=== PATIENT | male | born 1970 | race Caucasian/White ===

== ENCOUNTER 2018-06-28 16:15 | Inpatient (IN) | payer OTHER ==
[2018-06-28 17:36] VITALS: BMI 27.7
--- NOTE | 2018-06-28 19:25 | HP ---
CIWA Score - CIWA Score Nausea/Vomitin-No Nausea/No Vomiting Muscle Tremors: 4-Moderate,w/Arms Extend Anxiety: 3 Agitation: 1-Slight > Activity Paroxysmal Sweats: No Perspiration Orientation: 0-Oriented Tacttile Disturbances: 0-None Auditory Disturbances: 0-None Visual Disturbances: 0-None Headache: 0-None Present CIWA-Ar Total Score: 8 Admission ROS S - HPI Allergies/Adverse Reactions: Allergies Allergy/AdvReac Type Severity Reaction Status Date / Time No Known Allergies Allergy Verified 06/28/18 19:19 History of Present Illness: pt here requesting detox from etoh use , reports 4 tall boys / day , reports tremors if not drinking , denies seizures, + blackouts, + falls most recently years ago while living in [place] . lucian 0.328 utox neg for all. pmhx : htn , depression pshx : diverticulitis w/ partial small bowel resection 6 years ago meds : lisinopril sleep meds - has not taken in " months " tobacco : denies - Ebola screening Have you traveled outside of the country in the last 21 days: No (N) Have you had contact with anyone from an Ebola affected area: No Have you been sick,other than usual withdrawal symptoms: No Do you have a fever: No - Review of Systems Constitutional: No Symptoms Reported EENT: reports: No Symptoms Reported Respiratory: reports: No Symptoms reported Cardiac: reports: No Symptoms Reported GI: reports: No Symptoms Reported : reports: No Symptoms Reported Musculoskeletal: reports: No Symptoms Reported Integumentary: reports: No Symptoms Reported Neuro: reports: Tremors Psychiatric: reports: Judgement Intact, Orientated x3, Anxious, Depressed Patient History - Smoking Cessation Smoking history: Never smoked Family Disease History - Family Disease History Family Disease History: Other: Father (d. 36 ,lung CA ), Mother (d. 40's Alzheimer's), Brother (1 brother A & W ), Sister (2 sisters A & W ), Son (2 sons A & W ), Daughter (1 dtr A & W ) Admission Physical Exam S - Vital Signs Vital Signs: Vital Signs - 24 hr 06/28/18 17:33 Temperature 98.3 F Pulse Rate 90 Respiratory 20 Rate Blood Pressure 146/101 H - Physical General Appearance: Yes: Nourished, Disheveled, Moderate Distress, Alcohol on Breath, Intoxicated, Tremorous, Anxious HEENTM: Yes: EOMI, Hearing grossly Normal, Normal ENT Inspection, Normocephalic , Normal Voice, NAVID, Pharynx Normal, Other (injected conjunctivae bilaterally) Respiratory: Yes: Chest Non-Tender, Lungs Clear, Normal Breath Sounds, No Respiratory Distress, No Accessory Muscle Use Neck: Yes: Within Normal Limits, No masses,lesions,Nodules, Trachea in good position Cardiology: Yes: Within Normal Limits, Regular Rhythm, Regular Rate Abdominal: Yes: Normal Bowel Sounds, Non Tender, Flat, Soft Genitourinary: Yes: Within Normal Limits Back: Yes: Within Normal Limits, Normal Inspection Musculoskeletal: Yes: Within Normal Limits, full range of Motion, Gait Steady, Pelvis Stable Extremities: Yes: Normal Capillary Refill, Normal Inspection, Normal Range of Motion, Non-Tender, Tremors Neurological: Yes: Fully Oriented, Alert, Motor Strength 5/5, Normal Mood/Affect , Normal Response, Depressed Affect Integumentary: Yes: Normal Color, Dry, Warm - Diagnostic (1) Alcohol withdrawal Current Visit: Yes Status: Acute Qualifiers: Complication of substance-induced condition: uncomplicated Qualified Code(s ): F10.230 - Alcohol dependence with withdrawal, uncomplicated BHS Breath Alcohol Content Breath Alcohol Content: 0.328 Urine Drug Screen - Results Drug Screen Negative: Yes
[2018-06-28] MEDS ORDERED: guaiFENesin/D-METHORPHAN HB 10 ML UNIT-DOSE CUPS PO PRN (19:35)
[2018-06-28] MEDS ORDERED: ACETAMINOPHEN 325 MG TABLET (FP) PO PRN (19:35)
[2018-06-28] MEDS ORDERED: P-EPHED 60MG/TRIPROLIDI 2.5MG TABLET PO PRN (19:35)
[2018-06-28] MEDS ORDERED: MAGNESIUM CITRATE 300 ML BOTTLE PO PRN (19:35)
[2018-06-28] MEDS ORDERED: IBUPROFEN 400 MG TABLET (FP) PO PRN (19:35)
[2018-06-28] MEDS ORDERED: LOPERAMIDE HCL 2 MG CAPSULE PO PRN (19:35)
[2018-06-28] MEDS ORDERED: MAG HYDROX/AL HYDROX/SIMETH 30 ML UNIT-DOSE CUP PO PRN (19:35)
[2018-06-28] MEDS ORDERED: MENTHOL/PHENOL 1 EACH UD MM PRN (19:35)
[2018-06-28] MEDS ORDERED: MAGNESIUM HYDROX 2400MG/30ML ORAL SUSPENSION 30 ML CUP PO PRN (19:35)
[2018-06-28] MEDS ORDERED: METOPROLOL TARTRATE 25 MG TABLET (FP) PO ONE (19:38)
[2018-06-28] MEDS: THIAMINE HCL 100 MG TABLET (FP) PO SCH (21:39)
[2018-06-28] MEDS ORDERED: MELATONIN 5 MG TABLETS PO PRN (22:00)
[2018-06-28] MEDS: chlordiazePOXIDE HCL 25 MG CAPSULE PO SCH (22:00)
[2018-06-29 01:01] LABS: URINE APPEARANCE CLEAR; URINE BILIRUBIN NEGATIVE (<2.0 mg/dL); URINE COLOR STRAW; URINE GLUCOSE (UA) NEGATIVE (NEGATIVE); URINE KETONE NEGATIVE (NEGATIVE); URINE LEUK ESTERASE NEGATIVE (NEGATIVE); URINE NITRITE NEGATIVE (NEGATIVE); URINE PROTEIN NEGATIVE (NEGATIVE); URINE UROBILINOGEN NEGATIVE mg/dL (0.2-1.0)
[2018-06-29] MEDS: chlordiazePOXIDE HCL 25 MG CAPSULE PO SCH ×4 (05:50→22:30)
[2018-06-29] MEDS: chlordiazePOXIDE HCL 25 MG CAPSULE PO PRN ×2 (08:22→13:49)
[2018-06-29] MEDS ORDERED: amLODIPine BESYLATE 10 MG TABLET (FP) PO ONE (08:26)
[2018-06-29 10:02] LABS: HEMATOCRIT 38.8 % (35.4-49); HEMOGLOBIN 12.7 GM/dL (11.7-16.9); MCHC 32.8 g/dl (32.0-35.9); MEAN CELL VOLUME 94.7 fl (80-96); MEAN PLT VOLUME 7.4 fl (7.5-11.1); PLATELET COUNT 195 K/MM3 (134-434); RDW 16.2 % (11.9-15.9); WHITE BLOOD COUNT 3.4 K/mm3 (4.0-10.0)
--- NOTE | 2018-06-29 10:06 | CONSULT ---
[facility] Psychiatric Consult - Data Date of interview: 06/29/18 Admission source: [facility] Identifying data: Patient is a 48 year old male, father of three, unemployed, and is supported by food [employer]. This is patient's first admission to detox at [facility]. Patient admitted to for alcohol dependence. Substance Abuse History: Alcohol- drinks four 24 ounce beers daily Medical History: hypertension, diverticulitis w/ partial small bowel resection 6 years ago Psychiatric History: Patient reports multiple psychiatric hospitalization. All hospitalizations occured over 5 years ago([facility] and other [facility] Most recent Outpatient psychiatric care was 4-[address] [facility]. Patient is unable to recall the medications he was prescribed. Patient denies h /o suicide attempt. Physical/Sexual Abuse/Trauma History: denies. Mental Status Exam - Mental Status Exam Alert and Oriented to: Time, Place, Person Cognitive Function: Good Patient Appearance: Well Groomed Mood: Euthymic Affect: Appropriate Patient Behavior: Appropriate, Cooperative Speech Pattern: Appropriate Voice Loudness: Normal Thought Process: Intact, Goal Oriented Thought Disorder: Not Present Hallucinations: Denies Suicidal Ideation: Denies Homicidal Ideation: Denies Insight/Judgement: Poor Sleep: Poorly Appetite: Fair Muscle strength/Tone: Normal Gait/Station: Normal Psychiatric Findings - Problem List ([place] 1, 2,3) (1) Alcohol-induced mood disorder Current Visit: Yes Status: Acute (2) Alcohol withdrawal Current Visit: Yes Status: Acute Qualifiers: Complication of substance-induced condition: uncomplicated Qualified Code(s ): F10.230 - Alcohol dependence with withdrawal, uncomplicated (3) Insomnia Current Visit: Yes Status: Acute - Initial Treatment Plan Initial Treatment Plan: Psychoeducation provided. Detoxification in progress. Will order Vistaril 50mg q4h for anxiety. Patient informed that melatonin 5mg is ordered for insomnia.
[2018-06-29 10:17] LABS: ALBUMIN 3.8 g/dl (3.4-5.0); ALK PHOS 73 U/L (45-117); ANION GAP 7 MMOL/L (8-16); BILIRUBIN,TOTAL 0.8 mg/dL (0.2-1); BLOOD UREA NITROGEN 9 mg/dL (7-18); CALCIUM 8.9 mg/dL (8.5-10.1); CHLORIDE 106 mmol/L (98-107); CO2 27 mmol/L (21-32); CREATININE 0.5 mg/dL (0.55-1.3); GLUCOSE,RANDOM 70 mg/dL (74-106); POTASSIUM 3.7 mmol/L (3.5-5.1); SGOT/AST 103 U/L (15-37); SGPT/ALT 87 U/L (13-61); SODIUM 140 mmol/L (136-145); TOT PROT 7.7 g/dl (6.4-8.2)
[2018-06-29] MEDS: PRENATAL VITAMINS W/ FOLIC ACID TABLET (FP) PO SCH (10:19)
--- NOTE | 2018-06-29 10:48 | PN ---
[facility] CIWA - CIWA Score Nausea/Vomitin-Mild Nausea/No Vomiting Muscle Tremors: 3 Anxiety: 3 Agitation: 4-Moderately Restless Paroxysmal Sweats: No Perspiration Orientation: 0-Oriented Tacttile Disturbances: 0-None Auditory Disturbances: 0-None Visual Disturbances: 0-None Headache: 0-None Present CIWA-Ar Total Score: 11 S Progress Note (SOAP) Subjective: PATIENT C/O NAUSEA/DIARRHEA, SHAKES AND ANXIETY Objective: 06/29/18 10:47 Laboratory Tests 06/29/18 06/29/18 06/29/18 00:30 07:00 07:00 WBC 3.4 L RBC 4.10 Hgb 12.7 Hct 38.8 MCV 94.7 MCH 31.0 MCHC 32.8 RDW 16.2 H Plt Count 195 MPV 7.4 L Sodium 140 Potassium 3.7 Chloride 106 Carbon Dioxide 27 Anion Gap 7 L BUN 9 Creatinine 0.5 L Creat Clearance w eGFR > 60 Random Glucose 70 L Calcium 8.9 Total Bilirubin 0.8 AST 103 H ALT 87 H Alkaline Phosphatase 73 Total Protein 7.7 Albumin 3.8 Urine Color Straw Urine Appearance Clear Urine pH 6.0 Ur Specific [place] 1.004 L Urine Protein Negative Urine Glucose (UA) Negative Urine Ketones Negative Urine Blood Negative Urine Nitrite Negative Urine Bilirubin Negative Urine Urobilinogen Negative Ur Leukocyte Esterase Negative SKIN WARM AND DRY CAR S1S2 RESP CTA BL EXT +TREMORS, NO EDEMA +ANXIETY/RESTLESS 06/29/18 10:48 Vital Signs Temperature 97.3 F L 06/29/18 10:04 Pulse Rate 87 06/29/18 10:04 Respiratory Rate 18 06/29/18 10:04 Blood Pressure 151/104 H 06/29/18 10:04 O2 Sat by Pulse Oximetry (%) Assessment: 06/29/18 10:47 WITHDRAWAL SYNDROME HTN 06/29/18 10:48 Plan: CONTINUE DETOX ENCOURAGE ORAL FLUIDS ADD NORVASC FOR ELEVATED BP CONTINUE TO MONITOR ADD GINGERALE I CAN PO BID
[2018-06-29] MEDS: THIAMINE HCL 100 MG TABLET (FP) PO SCH (22:29)
[2018-06-30] MEDS: chlordiazePOXIDE HCL 25 MG CAPSULE PO SCH ×3 (06:42→17:56)
[2018-06-30] MEDS: PRENATAL VITAMINS W/ FOLIC ACID TABLET (FP) PO SCH (10:26)
[2018-06-30] MEDS: amLODIPine BESYLATE 10 MG TABLET (FP) PO SCH (10:26)
[2018-06-30] MEDS: chlordiazePOXIDE HCL 25 MG CAPSULE PO PRN (12:52)
--- NOTE | 2018-06-30 13:34 | PN ---
[facility] CIWA - CIWA Score Nausea/Vomitin-No Nausea/No Vomiting Muscle Tremors: 2 Anxiety: 4-Mod. Anxious/Guarded Agitation: 3 Paroxysmal Sweats: 1-Minimal Palms Moist Orientation: 0-Oriented Tacttile Disturbances: 0-None Auditory Disturbances: 0-None Visual Disturbances: 0-None Headache: 0-None Present CIWA-Ar Total Score: 10 BHS Progress Note (SOAP) Subjective: interrupted sleep, anxious, fatigue Vital Signs Temperature 98.1 F 06/30/18 10:17 Pulse Rate 85 06/30/18 10:17 Respiratory Rate 18 06/30/18 10:17 Blood Pressure 121/67 06/30/18 10:17 O2 Sat by Pulse Oximetry (%) Laboratory Last Values WBC 3.4 K/mm3 (4.0-10.0) L 06/29/18 07:00 RBC 4.10 M/mm3 (4.00-5.60) 06/29/18 07:00 Hgb 12.7 GM/dL (11.7-16.9) 06/29/18 07:00 Hct 38.8 % (35.4-49) 06/29/18 07:00 MCV 94.7 fl (80-96) 06/29/18 07:00 MCH 31.0 pg (25.7-33.7) 06/29/18 07:00 MCHC 32.8 g/dl (32.0-35.9) 06/29/18 07:00 RDW 16.2 % (11.9-15.9) H 06/29/18 07:00 Plt Count 195 K/MM3 (134-434) 06/29/18 07:00 MPV 7.4 fl (7.5-11.1) L 06/29/18 07:00 Sodium 140 mmol/L (136-145) 06/29/18 07:00 Potassium 3.7 mmol/L (3.5-5.1) 06/29/18 07:00 Chloride 106 mmol/L (98-107) 06/29/18 07:00 Carbon Dioxide 27 mmol/L (21-32) 06/29/18 07:00 Anion Gap 7 MMOL/L (8-16) L 06/29/18 07:00 BUN 9 mg/dL (7-18) 06/29/18 07:00 Creatinine 0.5 mg/dL (0.55-1.3) L 06/29/18 07:00 Creat Clearance w eGFR > 60 (>60) 06/29/18 07:00 Random Glucose 70 mg/dL (74-106) L 06/29/18 07:00 Calcium 8.9 mg/dL (8.5-10.1) 06/29/18 07:00 Total Bilirubin 0.8 mg/dL (0.2-1) 06/29/18 07:00 AST 103 U/L (15-37) H 06/29/18 07:00 ALT 87 U/L (13-61) H 06/29/18 07:00 Alkaline Phosphatase 73 U/L (45-117) 06/29/18 07:00 Total Protein 7.7 g/dl (6.4-8.2) 06/29/18 07:00 Albumin 3.8 g/dl (3.4-5.0) 06/29/18 07:00 Urine Color Straw 06/29/18 00:30 Urine Appearance Clear 06/29/18 00:30 Urine pH 6.0 (5.0-8.0) 06/29/18 00:30 Ur Specific [place] 1.004 (1.010-1.035) L 06/29/18 00:30 Urine Protein Negative (NEGATIVE) 06/29/18 00:30 Urine Glucose (UA) Negative (NEGATIVE) 06/29/18 00:30 Urine Ketones Negative (NEGATIVE) 06/29/18 00:30 Urine Blood Negative (NEGATIVE) 06/29/18 00:30 Urine Nitrite Negative (NEGATIVE) 06/29/18 00:30 Urine Bilirubin Negative (<2.0 mg/dL) 06/29/18 00:30 Urine Urobilinogen Negative mg/dL (0.2-1.0) 06/29/18 00:30 Ur Leukocyte Esterase Negative (NEGATIVE) 06/29/18 00:30 RPR Titer Nonreactive (NONREACTIVE) 06/29/18 07:00 Aox3 no distress, anxious no adventitious breath sound s ambulating in the unit withdrawal sx increase fluids continue detox continue to monitor
[2018-06-30] MEDS: chlordiazePOXIDE 5 MG CAPSULE PO SCH (22:16)
[2018-06-30] MEDS: THIAMINE HCL 100 MG TABLET (FP) PO SCH (22:16)
[2018-07-01] MEDS: chlordiazePOXIDE 5 MG CAPSULE PO SCH ×3 (06:00→17:21)
[2018-07-01] MEDS: amLODIPine BESYLATE 10 MG TABLET (FP) PO SCH (10:45)
[2018-07-01] MEDS: PRENATAL VITAMINS W/ FOLIC ACID TABLET (FP) PO SCH (10:45)
--- NOTE | 2018-07-01 12:45 | PN ---
BHS Progress Note (SOAP) Subjective: feeling better no tremor less sweat social with peers in day room Objective: 07/01/18 12:44 Vital Signs Temperature 97.9 F 07/01/18 09:48 Pulse Rate 98 H 07/01/18 09:48 Respiratory Rate 18 10 09:48 Blood Pressure 121/96 07/01/18 09:48 O2 Sat by Pulse Oximetry (%) Laboratory Last Values WBC 3.4 K/mm3 (4.0-10.0) L 06/29/18 07:00 RBC 4.10 M/mm3 (4.00-5.60) 06/29/18 07:00 Hgb 12.7 GM/dL (11.7-16.9) 06/29/18 07:00 Hct 38.8 % (35.4-49) 06/29/18 07:00 MCV 94.7 fl (80-96) 06/29/18 07:00 MCH 31.0 pg (25.7-33.7) 06/29/18 07:00 MCHC 32.8 g/dl (32.0-35.9) 06/29/18 07:00 RDW 16.2 % (11.9-15.9) H 06/29/18 07:00 Plt Count 195 K/MM3 (134-434) 06/29/18 07:00 MPV 7.4 fl (7.5-11.1) L 06/29/18 07:00 Sodium 140 mmol/L (136-145) 06/29/18 07:00 Potassium 3.7 mmol/L (3.5-5.1) 06/29/18 07:00 Chloride 106 mmol/L (98-107) 06/29/18 07:00 Carbon Dioxide 27 mmol/L (21-32) 06/29/18 07:00 Anion Gap 7 MMOL/L (8-16) L 06/29/18 07:00 BUN 9 mg/dL (7-18) 06/29/18 07:00 Creatinine 0.5 mg/dL (0.55-1.3) L 06/29/18 07:00 Creat Clearance w eGFR > 60 (>60) 06/29/18 07:00 Random Glucose 70 mg/dL (74-106) L 06/29/18 07:00 Calcium 8.9 mg/dL (8.5-10.1) 06/29/18 07:00 Total Bilirubin 0.8 mg/dL (0.2-1) 06/29/18 07:00 AST 103 U/L (15-37) H 06/29/18 07:00 ALT 87 U/L (13-61) H 06/29/18 07:00 Alkaline Phosphatase 73 U/L (45-117) 06/29/18 07:00 Total Protein 7.7 g/dl (6.4-8.2) 06/29/18 07:00 Albumin 3.8 g/dl (3.4-5.0) 06/29/18 07:00 Urine Color Straw 06/29/18 00:30 Urine Appearance Clear 06/29/18 00:30 Urine pH 6.0 (5.0-8.0) 06/29/18 00:30 Ur Specific [place] 1.004 (1.010-1.035) L 06/29/18 00:30 Urine Protein Negative (NEGATIVE) 06/29/18 00:30 Urine Glucose (UA) Negative (NEGATIVE) 06/29/18 00:30 Urine Ketones Negative (NEGATIVE) 06/29/18 00:30 Urine Blood Negative (NEGATIVE) 06/29/18 00:30 Urine Nitrite Negative (NEGATIVE) 06/29/18 00:30 Urine Bilirubin Negative (<2.0 mg/dL) 06/29/18 00:30 Urine Urobilinogen Negative mg/dL (0.2-1.0) 06/29/18 00:30 Ur Leukocyte Esterase Negative (NEGATIVE) 06/29/18 00:30 RPR Titer Nonreactive (NONREACTIVE) 06/29/18 07:00 lab noted Assessment: 07/01/18 12:45 mild withdrawal sx Plan: medically supervised detox
[2018-07-01] MEDS: chlordiazePOXIDE HCL 10 MG CAPSULE PO SCH (22:14)
[2018-07-01] MEDS: THIAMINE HCL 100 MG TABLET (FP) PO SCH (22:14)
[2018-07-02] MEDS: chlordiazePOXIDE HCL 10 MG CAPSULE PO SCH ×2 (06:01→10:14)
--- NOTE | 2018-07-02 08:45 | DS ---
[facility] Detox Discharge Summary Admission Date: 06/28/18 Discharge Date: 07/02/18 - History Present History: Alcohol Dependence Additional Comments: 48 years old male admitted on 06/27/18 for alcohol withdrawal sx completed alcohol detox regimen tolerated well denies alcohol withdrawal sx alert oriented x 3 no acute distress aftercare [facility] - Physical Exam Results Vital Signs: Vital Signs Temperature 97.0 F L 07/02/18 06:00 Pulse Rate 68 07/02/18 06:00 Respiratory Rate 18 07/02/18 06:00 Blood Pressure 107/69 07/02/18 06:00 O2 Sat by Pulse Oximetry (%) Pertinent Admission Physical Exam Findings: alcohol withdrawal sx Vital Signs Temperature 97.0 F L 07/02/18 06:00 Pulse Rate 83 07/02/18 09:22 Respiratory Rate 18 07/02/18 09:22 Blood Pressure 133/96 07/02/18 09:22 O2 Sat by Pulse Oximetry (%) Laboratory Last Values WBC 3.4 K/mm3 (4.0-10.0) L 06/29/18 07:00 RBC 4.10 M/mm3 (4.00-5.60) 06/29/18 07:00 Hgb 12.7 GM/dL (11.7-16.9) 06/29/18 07:00 Hct 38.8 % (35.4-49) 06/29/18 07:00 MCV 94.7 fl (80-96) 06/29/18 07:00 MCH 31.0 pg (25.7-33.7) 06/29/18 07:00 MCHC 32.8 g/dl (32.0-35.9) 06/29/18 07:00 RDW 16.2 % (11.9-15.9) H 06/29/18 07:00 Plt Count 195 K/MM3 (134-434) 06/29/18 07:00 MPV 7.4 fl (7.5-11.1) L 06/29/18 07:00 Sodium 140 mmol/L (136-145) 06/29/18 07:00 Potassium 3.7 mmol/L (3.5-5.1) 06/29/18 07:00 Chloride 106 mmol/L (98-107) 06/29/18 07:00 Carbon Dioxide 27 mmol/L (21-32) 06/29/18 07:00 Anion Gap 7 MMOL/L (8-16) L 06/29/18 07:00 BUN 9 mg/dL (7-18) 06/29/18 07:00 Creatinine 0.5 mg/dL (0.55-1.3) L 06/29/18 07:00 Creat Clearance w eGFR > 60 (>60) 06/29/18 07:00 Random Glucose 70 mg/dL (74-106) L 06/29/18 07:00 Calcium 8.9 mg/dL (8.5-10.1) 06/29/18 07:00 Total Bilirubin 0.8 mg/dL (0.2-1) 06/29/18 07:00 AST 103 U/L (15-37) H 06/29/18 07:00 ALT 87 U/L (13-61) H 06/29/18 07:00 Alkaline Phosphatase 73 U/L (45-117) 06/29/18 07:00 Total Protein 7.7 g/dl (6.4-8.2) 06/29/18 07:00 Albumin 3.8 g/dl (3.4-5.0) 06/29/18 07:00 Urine Color Straw 06/29/18 00:30 Urine Appearance Clear 06/29/18 00:30 Urine pH 6.0 (5.0-8.0) 06/29/18 00:30 Ur Specific [place] 1.004 (1.010-1.035) L 06/29/18 00:30 Urine Protein Negative (NEGATIVE) 06/29/18 00:30 Urine Glucose (UA) Negative (NEGATIVE) 06/29/18 00:30 Urine Ketones Negative (NEGATIVE) 06/29/18 00:30 Urine Blood Negative (NEGATIVE) 06/29/18 00:30 Urine Nitrite Negative (NEGATIVE) 06/29/18 00:30 Urine Bilirubin Negative (<2.0 mg/dL) 06/29/18 00:30 Urine Urobilinogen Negative mg/dL (0.2-1.0) 06/29/18 00:30 Ur Leukocyte Esterase Negative (NEGATIVE) 06/29/18 00:30 RPR Titer Nonreactive (NONREACTIVE) 06/29/18 07:00 lab noted agrees to follow up with primary care provider for liver enzyme elevation due to alcohol drinking health teaching on negative consequences related to alcohol consumption - Treatment Hospital Course: Detox Protocol Followed, Detoxed Safely, Responded well, Discharged Condition Good, Rehab Referral Accepted Patient has Accepted a Rehab Referral to: [facility] - Medication Discharge Medications: Ambulatory Orders Amlodipine Besylate [Norvasc -] 10 mg PO DAILY #30 tablet 07/01/18 - Diagnosis (1) Alcohol dependence with uncomplicated withdrawal Current Visit: Yes Status: Acute (2) Hypertension Current Visit: Yes Status: Chronic Qualifiers: Hypertension type: unspecified secondary hypertension Qualified Code(s): I15.9 - Secondary hypertension, unspecified; I15 - Secondary hypertension - AMA Did Patient Leave Against Medical Advice: No
[2018-07-02] MEDS: PRENATAL VITAMINS W/ FOLIC ACID TABLET (FP) PO SCH (10:12)
[2018-07-02] MEDS: amLODIPine BESYLATE 10 MG TABLET (FP) PO SCH (10:13)
[2018-07-02 13:32] VITALS: BP 128/81; PULSE 78; TEMP 98
== END 2018-07-02 13:10 | disposition other institution (70) | DRG 775 ==
LOC: YASAS 16:15 → Y6N 19:23
PROC: HZ2ZZZZ Detoxification Services for Substance Abuse Treatment (ICD-10-PCS; principal; 2018-06-28)
DX: F10.230 Alcohol dependence with withdrawal, uncomplicated (principal); F10.24 Alcohol dependence with alcohol-induced mood disorder; I15.9 Secondary hypertension, unspecified; G47.00 Insomnia, unspecified
CPT/HCPCS: 36415; 80053; 81003; 85027; 86593

== ENCOUNTER 2018-07-02 13:11 | Inpatient (IN) | payer OTHER ==
--- NOTE | 2018-07-02 14:10 | HP ---
Psychiatrist Admission - Data Date of interview: 07/02/18 Admission source: [address] [place] [address] detox Identifying data: This is the first admission to [address] [place] [address] rehabilitationfor this 48 years old H single male father of 3,homeless, supported by [employer]. Medical History: Significant for HTN. Psychiatric History: patient reports long history of depression along with alcohol dpenendence.He reports about 4-5 psychiatric hospitalizations ,mostly hapenned within last 5 years.Most recent admission [facility] to [facility] a few years ago.Patient reports poor adherence to psychiatric outpatient treatment.He stopped to take psychotropic medications about 5 yo.patient restarted Physical/Sexual Abuse/Trauma History: denies Vital Signs: Vital Signs - 24 hr 07/02/18 13:20 Temperature 98.2 F Pulse Rate 85 Respiratory 18 Rate Blood Pressure 137/94 Allergies/Adverse Reactions: Allergies Allergy/AdvReac Type Severity Reaction Status Date / Time lisinopril Allergy Swelling Verified 07/02/18 13:18 Concur with the findings of this exam: Yes - Substance Abuse/Tx History Hx Alcohol Use: Yes (reports drinking since 16 yo,beer ) Hx Substance Use: Yes (stopped PCP more than 20 yo) Substance Use Type: Alcohol Hx Substance Use Treatment: Yes (longest abstinence reported about 6 months only ) Mental Status Exam - Mental Status Exam Alert and Oriented to: Time, Place, Person Cognitive Function: Grossly Intact Patient Appearance: Well Groomed Mood: Sad, Anxious Affect: Mood Congruent, Labile Patient Behavior: Cooperative Speech Pattern: Clear Voice Loudness: Normal Thought Process: Goal Oriented Thought Disorder: Not Present Hallucinations: Denies Suicidal Ideation: Denies Homicidal Ideation: Denies Insight/Judgement: Fair Sleep: Fair Appetite: Good Muscle strength/Tone: Normal Gait/Station: Normal Psychiatric Findings - Problem List ([place] 1, 2,3) (1) Alcohol-induced mood disorder Current Visit: Yes Status: Chronic (2) Hypertension Current Visit: Yes Status: Chronic Qualifiers: (3) Alcohol dependence Current Visit: Yes Status: Chronic - Initial Treatment Plan Initial Treatment Plan: Will monitor progress.
[2018-07-02] MEDS ORDERED: guaiFENesin/D-METHORPHAN HB 10 ML UNIT-DOSE CUPS PO PRN (16:13)
[2018-07-02] MEDS ORDERED: MAG HYDROX/AL HYDROX/SIMETH 30 ML UNIT-DOSE CUP PO PRN (16:13)
[2018-07-02] MEDS ORDERED: MAGNESIUM CITRATE 300 ML BOTTLE PO PRN (16:13)
[2018-07-02] MEDS ORDERED: MENTHOL/PHENOL 1 EACH UD MM PRN (16:13)
[2018-07-02] MEDS ORDERED: MAGNESIUM HYDROX 2400MG/30ML ORAL SUSPENSION 30 ML CUP PO PRN (16:13)
[2018-07-02] MEDS ORDERED: ACETAMINOPHEN 325 MG TABLET (FP) PO PRN (16:13)
[2018-07-02] MEDS ORDERED: LOPERAMIDE HCL 2 MG CAPSULE PO PRN (16:13)
[2018-07-02] MEDS ORDERED: P-EPHED 60MG/TRIPROLIDI 2.5MG TABLET PO PRN (16:13)
--- NOTE | 2018-07-02 16:16 | HP ---
[facility] Rehab Assess/Revision - Admission History Admitted to Rehab from: [facility] Date of Admission to Rehab: 07/02/18 - Vital signs Vital Signs: Vital Signs Period Temp Pulse Resp BP Sys/Rodriguez Pulse Ox Last 24 Hr 98.2 F 85 18 137/94 - Findings Detox History & Physical reviewed: Yes Concur with findings: Yes Inpatient Rehab Admission - Initial Determination Are CD services needed?: Yes Free of communicable disease: Yes Not in need of hospitalization: Yes - Rehab Admission Criteria Previous failed treatment: Yes Poor recovery environment: Yes Comorbidities: Yes Lacks judgement: Yes Patient is meeting Inpatient Rehab admission criteria:: Yes
[2018-07-02] MEDS: CITALOPRAM HYDROBROMIDE 20 MG TABLET (FP) PO SCH (17:40)
[2018-07-02] MEDS: THIAMINE HCL 100 MG TABLET (FP) PO SCH (21:02)
[2018-07-02] MEDS: QUEtiapine FUMARATE 50 MG TABLET PO SCH (21:02)
[2018-07-02] MEDS ORDERED: MELATONIN 5 MG TABLETS PO PRN (22:00)
[2018-07-03] MEDS: PRENATAL VITAMINS W/ FOLIC ACID TABLET (FP) PO SCH (09:33)
[2018-07-03] MEDS: CITALOPRAM HYDROBROMIDE 20 MG TABLET (FP) PO SCH (09:33)
[2018-07-03] MEDS: amLODIPine BESYLATE 10 MG TABLET (FP) PO SCH (09:33)
[2018-07-03] MEDS: IBUPROFEN 400 MG TABLET (FP) PO PRN (09:34)
[2018-07-03] MEDS: QUEtiapine FUMARATE 50 MG TABLET PO SCH (21:06)
[2018-07-03] MEDS: THIAMINE HCL 100 MG TABLET (FP) PO SCH (21:07)
[2018-07-04] MEDS: PRENATAL VITAMINS W/ FOLIC ACID TABLET (FP) PO SCH (09:36)
[2018-07-04] MEDS: amLODIPine BESYLATE 10 MG TABLET (FP) PO SCH (09:36)
[2018-07-04] MEDS: CITALOPRAM HYDROBROMIDE 20 MG TABLET (FP) PO SCH (09:36)
[2018-07-04] MEDS: QUEtiapine FUMARATE 50 MG TABLET PO SCH (21:06)
[2018-07-04] MEDS: THIAMINE HCL 100 MG TABLET (FP) PO SCH (21:08)
[2018-07-05] MEDS: amLODIPine BESYLATE 10 MG TABLET (FP) PO SCH (09:39)
[2018-07-05] MEDS: PRENATAL VITAMINS W/ FOLIC ACID TABLET (FP) PO SCH (09:39)
[2018-07-05] MEDS: CITALOPRAM HYDROBROMIDE 20 MG TABLET (FP) PO SCH (09:39)
[2018-07-05] MEDS: THIAMINE HCL 100 MG TABLET (FP) PO SCH (21:05)
[2018-07-05] MEDS: QUEtiapine FUMARATE 50 MG TABLET PO SCH (21:05)
[2018-07-06] MEDS: amLODIPine BESYLATE 10 MG TABLET (FP) PO SCH (09:18)
[2018-07-06] MEDS: PRENATAL VITAMINS W/ FOLIC ACID TABLET (FP) PO SCH (09:18)
[2018-07-06] MEDS: CITALOPRAM HYDROBROMIDE 20 MG TABLET (FP) PO SCH (09:19)
[2018-07-06] MEDS: QUEtiapine FUMARATE 50 MG TABLET PO SCH (21:04)
[2018-07-06] MEDS: THIAMINE HCL 100 MG TABLET (FP) PO SCH (21:04)
[2018-07-07] MEDS: CITALOPRAM HYDROBROMIDE 20 MG TABLET (FP) PO SCH (09:29)
[2018-07-07] MEDS: amLODIPine BESYLATE 10 MG TABLET (FP) PO SCH (09:29)
[2018-07-07] MEDS: PRENATAL VITAMINS W/ FOLIC ACID TABLET (FP) PO SCH (09:29)
[2018-07-07] MEDS: THIAMINE HCL 100 MG TABLET (FP) PO SCH (21:02)
[2018-07-07] MEDS: QUEtiapine FUMARATE 50 MG TABLET PO SCH (21:02)
[2018-07-08] MEDS: hydrOXYzine PAMOATE 50 MG CAPSULE (FP) PO PRN (06:11)
[2018-07-08] MEDS: CITALOPRAM HYDROBROMIDE 20 MG TABLET (FP) PO SCH (09:26)
[2018-07-08] MEDS: PRENATAL VITAMINS W/ FOLIC ACID TABLET (FP) PO SCH (09:26)
[2018-07-08] MEDS: amLODIPine BESYLATE 10 MG TABLET (FP) PO SCH (09:26)
[2018-07-08] MEDS: QUEtiapine FUMARATE 50 MG TABLET PO SCH (21:06)
[2018-07-08] MEDS: THIAMINE HCL 100 MG TABLET (FP) PO SCH (21:06)
[2018-07-09] MEDS: hydrOXYzine PAMOATE 50 MG CAPSULE (FP) PO PRN (06:16)
[2018-07-09] MEDS: amLODIPine BESYLATE 10 MG TABLET (FP) PO SCH (09:37)
[2018-07-09] MEDS: CITALOPRAM HYDROBROMIDE 20 MG TABLET (FP) PO SCH (09:37)
[2018-07-09] MEDS: PRENATAL VITAMINS W/ FOLIC ACID TABLET (FP) PO SCH (09:37)
[2018-07-09] MEDS: ARTIFICIAL TEARS (POLYVINYL ALCOHOL) OPTH DROPS OU PRN ×3 (12:08→21:05)
[2018-07-09] MEDS: THIAMINE HCL 100 MG TABLET (FP) PO SCH (21:06)
[2018-07-09] MEDS: QUEtiapine FUMARATE 50 MG TABLET PO SCH (21:06)
[2018-07-10] MEDS: amLODIPine BESYLATE 10 MG TABLET (FP) PO SCH (09:22)
[2018-07-10] MEDS: PRENATAL VITAMINS W/ FOLIC ACID TABLET (FP) PO SCH (09:22)
[2018-07-10] MEDS: CITALOPRAM HYDROBROMIDE 20 MG TABLET (FP) PO SCH (09:22)
[2018-07-10] MEDS: ARTIFICIAL TEARS (POLYVINYL ALCOHOL) OPTH DROPS OU PRN (09:23)
[2018-07-10] MEDS: QUEtiapine FUMARATE 50 MG TABLET PO SCH (21:04)
[2018-07-10] MEDS: THIAMINE HCL 100 MG TABLET (FP) PO SCH (21:04)
[2018-07-11] MEDS: hydrOXYzine PAMOATE 50 MG CAPSULE (FP) PO PRN ×2 (03:42→09:48)
[2018-07-11] MEDS: CITALOPRAM HYDROBROMIDE 20 MG TABLET (FP) PO SCH (09:47)
[2018-07-11] MEDS: PRENATAL VITAMINS W/ FOLIC ACID TABLET (FP) PO SCH (09:47)
[2018-07-11] MEDS: amLODIPine BESYLATE 10 MG TABLET (FP) PO SCH (09:47)
[2018-07-11] MEDS ORDERED: COLLOIDAL OATMEAL 1 BAR EACH TP PRN (10:48)
[2018-07-11] MEDS: THIAMINE HCL 100 MG TABLET (FP) PO SCH (21:06)
[2018-07-11] MEDS: QUEtiapine FUMARATE 50 MG TABLET PO SCH (21:07)
[2018-07-12] MEDS: amLODIPine BESYLATE 10 MG TABLET (FP) PO SCH (09:40)
[2018-07-12] MEDS: PRENATAL VITAMINS W/ FOLIC ACID TABLET (FP) PO SCH (09:40)
[2018-07-12] MEDS: CITALOPRAM HYDROBROMIDE 20 MG TABLET (FP) PO SCH (09:40)
[2018-07-12] MEDS: ARTIFICIAL TEARS (POLYVINYL ALCOHOL) OPTH DROPS OU PRN ×2 (13:09→19:22)
[2018-07-12] MEDS: THIAMINE HCL 100 MG TABLET (FP) PO SCH (21:08)
[2018-07-12] MEDS: QUEtiapine FUMARATE 50 MG TABLET PO SCH (21:08)
[2018-07-13] MEDS: hydrOXYzine PAMOATE 50 MG CAPSULE (FP) PO PRN ×4 (03:38→21:05)
[2018-07-13] MEDS: amLODIPine BESYLATE 10 MG TABLET (FP) PO SCH (09:42)
[2018-07-13] MEDS: CITALOPRAM HYDROBROMIDE 20 MG TABLET (FP) PO SCH (09:42)
[2018-07-13] MEDS: ARTIFICIAL TEARS (POLYVINYL ALCOHOL) OPTH DROPS OU PRN ×2 (09:42→21:05)
[2018-07-13] MEDS: PRENATAL VITAMINS W/ FOLIC ACID TABLET (FP) PO SCH (09:42)
[2018-07-13] MEDS: IBUPROFEN 400 MG TABLET (FP) PO PRN (13:30)
[2018-07-13] MEDS: THIAMINE HCL 100 MG TABLET (FP) PO SCH (21:03)
[2018-07-13] MEDS: QUEtiapine FUMARATE 50 MG TABLET PO SCH (21:03)
[2018-07-14] MEDS: hydrOXYzine PAMOATE 50 MG CAPSULE (FP) PO PRN ×4 (02:15→21:03)
[2018-07-14] MEDS: PRENATAL VITAMINS W/ FOLIC ACID TABLET (FP) PO SCH (09:37)
[2018-07-14] MEDS: amLODIPine BESYLATE 10 MG TABLET (FP) PO SCH (09:38)
[2018-07-14] MEDS: CITALOPRAM HYDROBROMIDE 20 MG TABLET (FP) PO SCH (09:38)
[2018-07-14] MEDS: ARTIFICIAL TEARS (POLYVINYL ALCOHOL) OPTH DROPS OU PRN (09:39)
[2018-07-14] MEDS: IBUPROFEN 400 MG TABLET (FP) PO PRN ×2 (09:39→21:03)
[2018-07-14] MEDS: THIAMINE HCL 100 MG TABLET (FP) PO SCH (21:01)
[2018-07-14] MEDS: QUEtiapine FUMARATE 50 MG TABLET PO SCH (21:01)
[2018-07-15] MEDS: amLODIPine BESYLATE 10 MG TABLET (FP) PO SCH (09:20)
[2018-07-15] MEDS: ARTIFICIAL TEARS (POLYVINYL ALCOHOL) OPTH DROPS OU PRN (09:20)
[2018-07-15] MEDS: CITALOPRAM HYDROBROMIDE 20 MG TABLET (FP) PO SCH (09:20)
[2018-07-15] MEDS: PRENATAL VITAMINS W/ FOLIC ACID TABLET (FP) PO SCH (09:20)
[2018-07-15] MEDS: hydrOXYzine PAMOATE 50 MG CAPSULE (FP) PO PRN (09:22)
[2018-07-15] MEDS: IBUPROFEN 400 MG TABLET (FP) PO PRN ×2 (09:22→21:10)
[2018-07-15] MEDS: QUEtiapine FUMARATE 50 MG TABLET PO SCH (21:07)
[2018-07-15] MEDS: THIAMINE HCL 100 MG TABLET (FP) PO SCH (21:07)
[2018-07-15] MEDS ORDERED: PT OWN MED DRAWER 7, Y5N ONE (23:17)
[2018-07-16] MEDS: hydrOXYzine PAMOATE 50 MG CAPSULE (FP) PO PRN ×3 (04:23→21:11)
[2018-07-16] MEDS: CITALOPRAM HYDROBROMIDE 20 MG TABLET (FP) PO SCH (10:03)
[2018-07-16] MEDS: amLODIPine BESYLATE 10 MG TABLET (FP) PO SCH (10:03)
[2018-07-16] MEDS: PRENATAL VITAMINS W/ FOLIC ACID TABLET (FP) PO SCH (10:03)
[2018-07-16] MEDS: ARTIFICIAL TEARS (POLYVINYL ALCOHOL) OPTH DROPS OU PRN ×2 (10:03→21:10)
[2018-07-16] MEDS: IBUPROFEN 400 MG TABLET (FP) PO PRN ×2 (10:05→21:11)
[2018-07-16] MEDS: THIAMINE HCL 100 MG TABLET (FP) PO SCH (21:07)
[2018-07-16] MEDS: QUEtiapine FUMARATE 50 MG TABLET PO SCH (21:07)
[2018-07-17] MEDS: ARTIFICIAL TEARS (POLYVINYL ALCOHOL) OPTH DROPS OU PRN ×2 (06:20→21:05)
[2018-07-17] MEDS: IBUPROFEN 400 MG TABLET (FP) PO PRN (06:21)
[2018-07-17] MEDS: amLODIPine BESYLATE 10 MG TABLET (FP) PO SCH (09:57)
[2018-07-17] MEDS: PRENATAL VITAMINS W/ FOLIC ACID TABLET (FP) PO SCH (09:57)
[2018-07-17] MEDS: CITALOPRAM HYDROBROMIDE 20 MG TABLET (FP) PO SCH (09:57)
[2018-07-17] MEDS: LORATADINE 10 MG TABLET PO SCH (09:57)
[2018-07-17] MEDS: LIDOCAINE 5% TOPICAL PATCH TP SCH (11:59)
[2018-07-17] MEDS: CYCLOBENZAPRINE HCL 10 MG TABLET (FP) PO SCH ×2 (14:08→21:04)
[2018-07-17] MEDS: QUEtiapine FUMARATE 50 MG TABLET PO SCH (21:04)
[2018-07-17] MEDS: THIAMINE HCL 100 MG TABLET (FP) PO SCH (21:04)
[2018-07-17] MEDS: LIDOCAINE PATCH REMOVAL MC SCH (21:05)
[2018-07-18] MEDS: ARTIFICIAL TEARS (POLYVINYL ALCOHOL) OPTH DROPS OU PRN ×2 (06:24→21:07)
[2018-07-18] MEDS: CYCLOBENZAPRINE HCL 10 MG TABLET (FP) PO SCH ×3 (06:24→21:07)
[2018-07-18] MEDS: PRENATAL VITAMINS W/ FOLIC ACID TABLET (FP) PO SCH (09:47)
[2018-07-18] MEDS: LORATADINE 10 MG TABLET PO SCH (09:47)
[2018-07-18] MEDS: LIDOCAINE 5% TOPICAL PATCH TP SCH (09:47)
[2018-07-18] MEDS: amLODIPine BESYLATE 10 MG TABLET (FP) PO SCH (09:47)
[2018-07-18] MEDS: CITALOPRAM HYDROBROMIDE 20 MG TABLET (FP) PO SCH (09:47)
[2018-07-18] MEDS: hydrOXYzine PAMOATE 50 MG CAPSULE (FP) PO PRN (21:07)
[2018-07-18] MEDS: QUEtiapine FUMARATE 50 MG TABLET PO SCH (21:07)
[2018-07-18] MEDS: THIAMINE HCL 100 MG TABLET (FP) PO SCH (21:07)
[2018-07-18] MEDS: LIDOCAINE PATCH REMOVAL MC SCH (21:08)
[2018-07-19] MEDS: CYCLOBENZAPRINE HCL 10 MG TABLET (FP) PO SCH ×3 (07:18→21:12)
[2018-07-19] MEDS: ARTIFICIAL TEARS (POLYVINYL ALCOHOL) OPTH DROPS OU PRN ×2 (07:19→21:12)
[2018-07-19] MEDS: LORATADINE 10 MG TABLET PO SCH (09:56)
[2018-07-19] MEDS: amLODIPine BESYLATE 10 MG TABLET (FP) PO SCH (09:56)
[2018-07-19] MEDS: LIDOCAINE 5% TOPICAL PATCH TP SCH (09:57)
[2018-07-19] MEDS: PRENATAL VITAMINS W/ FOLIC ACID TABLET (FP) PO SCH (11:05)
[2018-07-19] MEDS: CITALOPRAM HYDROBROMIDE 20 MG TABLET (FP) PO SCH (11:05)
[2018-07-19] MEDS: QUEtiapine FUMARATE 50 MG TABLET PO SCH (21:12)
[2018-07-19] MEDS: THIAMINE HCL 100 MG TABLET (FP) PO SCH (21:12)
[2018-07-19] MEDS: LIDOCAINE PATCH REMOVAL MC SCH (21:13)
[2018-07-20] MEDS: CYCLOBENZAPRINE HCL 10 MG TABLET (FP) PO SCH ×3 (06:07→21:05)
[2018-07-20] MEDS: amLODIPine BESYLATE 10 MG TABLET (FP) PO SCH (10:02)
[2018-07-20] MEDS: PRENATAL VITAMINS W/ FOLIC ACID TABLET (FP) PO SCH (10:02)
[2018-07-20] MEDS: ARTIFICIAL TEARS (POLYVINYL ALCOHOL) OPTH DROPS OU PRN ×2 (10:02→21:05)
[2018-07-20] MEDS: LORATADINE 10 MG TABLET PO SCH (10:02)
[2018-07-20] MEDS: CITALOPRAM HYDROBROMIDE 20 MG TABLET (FP) PO SCH (10:02)
[2018-07-20] MEDS: LIDOCAINE 5% TOPICAL PATCH TP SCH (10:02)
[2018-07-20] MEDS: QUEtiapine FUMARATE 50 MG TABLET PO SCH (21:05)
[2018-07-20] MEDS: THIAMINE HCL 100 MG TABLET (FP) PO SCH (21:05)
[2018-07-20] MEDS: LIDOCAINE PATCH REMOVAL MC SCH (21:06)
[2018-07-21] MEDS: CYCLOBENZAPRINE HCL 10 MG TABLET (FP) PO SCH ×3 (06:40→21:08)
[2018-07-21] MEDS: ARTIFICIAL TEARS (POLYVINYL ALCOHOL) OPTH DROPS OU PRN ×3 (06:40→21:08)
[2018-07-21] MEDS: PRENATAL VITAMINS W/ FOLIC ACID TABLET (FP) PO SCH (09:20)
[2018-07-21] MEDS: amLODIPine BESYLATE 10 MG TABLET (FP) PO SCH (09:20)
[2018-07-21] MEDS: LORATADINE 10 MG TABLET PO SCH (09:20)
[2018-07-21] MEDS: CITALOPRAM HYDROBROMIDE 20 MG TABLET (FP) PO SCH (09:20)
[2018-07-21] MEDS: LIDOCAINE 5% TOPICAL PATCH TP SCH (09:21)
[2018-07-21] MEDS: THIAMINE HCL 100 MG TABLET (FP) PO SCH (21:08)
[2018-07-21] MEDS: QUEtiapine FUMARATE 50 MG TABLET PO SCH (21:08)
[2018-07-21] MEDS: LIDOCAINE PATCH REMOVAL MC SCH (21:09)
[2018-07-22] MEDS: CYCLOBENZAPRINE HCL 10 MG TABLET (FP) PO SCH ×3 (06:19→21:01)
[2018-07-22] MEDS: PRENATAL VITAMINS W/ FOLIC ACID TABLET (FP) PO SCH (09:25)
[2018-07-22] MEDS: CITALOPRAM HYDROBROMIDE 20 MG TABLET (FP) PO SCH (09:25)
[2018-07-22] MEDS: LORATADINE 10 MG TABLET PO SCH (09:25)
[2018-07-22] MEDS: amLODIPine BESYLATE 10 MG TABLET (FP) PO SCH (09:25)
[2018-07-22] MEDS: LIDOCAINE 5% TOPICAL PATCH TP SCH (09:26)
--- NOTE | 2018-07-22 13:44 | PN ---
Psychiatric Progress Note Vital Signs: Vital Signs Period Temp Pulse Resp BP Sys/Rodriguez Pulse Ox Last 24 Hr 97.8 F 96-98 18-18 115-121/75-76 Date of Session: 07/22/18 Chief Complaint:: Discharge Note HPI: Patient addressing Alcohol Dependence comorbid with Alcohol-Induced Mood Disorder ROS: HTN was medically managed Current Medications: Active Medications Generic Name Dose Route Start Last Admin Trade Name Freq PRN Reason Stop Dose Admin Acetaminophen 650 mg 07/02/18 16:13 07/13/18 17:57 Tylenol - PO 650 mg Q4H PRN Administration FEVER Al Hydroxide/Mg Hydroxide 30 ml 07/02/18 16:13 Mylanta Oral Suspension - PO Q6H PRN DYSPEPSIA Amlodipine Besylate 10 mg 07/03/18 10:00 07/22/18 09:25 Norvasc - PO 10 mg DAILY DONNA Administration Artificial Tears 1 drop 07/07/18 11:28 07/21/18 21:08 Artificial Tears OU 1 drop QID PRN Administration DRY EYES Citalopram Hydrobromide 20 mg 07/02/18 17:15 07/22/18 09:25 Celexa - PO 20 mg DAILY DONNA Administration Cyclobenzaprine HCl 10 mg 07/17/18 14:00 07/22/18 06:19 Flexeril - PO 10 mg TID DONNA Administration Eucalyptus/Menthol/Phenol/Sorbitol 1 each 07/02/18 16:13 Cepastat Lozenge - MM Q4H PRN SORE THROAT Guaifenesin 10 ml 07/02/18 16:13 Robitussin Dm - PO Q6H PRN COUGH Hydroxyzine Pamoate 50 mg 07/02/18 16:13 07/18/18 21:07 Vistaril - PO 50 mg Q4H PRN Administration AGITATION Ibuprofen 400 mg 07/02/18 16:13 07/17/18 06:21 Motrin - PO 400 mg Q6H PRN Administration Pain Level 4-6 Lidocaine 1 patch 07/17/18 10:15 07/22/18 09:26 Lidoderm Patch - TP 1 patch DAILY DONNA Administration Loperamide HCl 4 mg 07/02/18 16:13 Imodium - PO Q6H PRN DIARRHEA Loratadine 10 mg 07/17/18 10:00 07/22/18 09:25 Claritin - PO 10 mg DAILY DONNA Administration Magnesium Citrate 300 ml 07/02/18 16:13 Citroma - PO Q48H PRN CONSTIPATION Magnesium Hydroxide 30 ml 07/02/18 16:13 Milk Of Magnesia - PO DAILY PRN CONSTIPATION Melatonin 5 mg 07/02/18 22:00 Melatonin PO HS PRN INSOMNIA Miscellaneous 1 each 07/17/18 22:00 07/21/18 21:09 Lidoderm Patch Removal MC 1 each DAILY@2200 DONNA Administration Multivit/Folic Acid/Iron 1 tab 07/03/18 10:00 07/22/18 09:25 Vitamins (Sjr) - PO 1 tab DAILY DONNA Administration Pseudoephedrine/Triprolidine 1 combo 07/02/18 16:13 07/07/18 06:13 Actifed - PO 1 combo TID PRN Administration NASAL CONGESTION Quetiapine Fumarate 50 mg 07/02/18 22:00 07/21/18 21:08 Seroquel - PO 50 mg HS DONNA Administration Thiamine HCl 100 mg 07/02/18 22:00 07/21/18 21:08 Vitamin B1 - PO 100 mg HS DONNA Administration Current Side Effect: No Lab tests ordered: Yes Lab tests reviewed: Yes Provider note:: Patient will complete this program on 07/23/18. 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 Told proposal lead writer that from his participation in this program, he has learned not only the importance of making meetings and have a sponsor but to go to christianity. He is stable for discharge on 07/23/18 Total face to face time:: 35 Mental Status Exam - Mental Status Exam Alert and Oriented to: Time, Place, Person Cognitive Function: Fair Patient Appearance: Well Groomed Mood: Hopeful, Euthymic Affect: Appropriate Patient Behavior: Cooperative Speech Pattern: Clear Voice Loudness: Normal Thought Process: Intact, Goal Oriented Thought Disorder: Not Present Hallucinations: Denies Suicidal Ideation: Denies Homicidal Ideation: Denies Insight/Judgement: Fair Sleep: Fair Appetite: Fair Muscle strength/Tone: Normal Gait/Station: Normal Psychiatric Treatment Plan - Problem List (1) Alcohol dependence Current Visit: Yes (2) Alcohol-induced mood disorder Current Visit: Yes (3) Alcohol-induced sleep disorder Current Visit: Yes (4) Hypertension Current Visit: Yes Qualifiers: Initial treatment plan: Patient will be discharged tomorrow and referred to [facility] for terminal system operator residential treatment
[2018-07-22] MEDS: IBUPROFEN 400 MG TABLET (FP) PO PRN (14:39)
[2018-07-22] MEDS: ARTIFICIAL TEARS (POLYVINYL ALCOHOL) OPTH DROPS OU PRN ×2 (14:44→21:02)
[2018-07-22] MEDS: THIAMINE HCL 100 MG TABLET (FP) PO SCH (21:01)
[2018-07-22] MEDS: QUEtiapine FUMARATE 50 MG TABLET PO SCH (21:01)
[2018-07-22] MEDS: LIDOCAINE PATCH REMOVAL MC SCH (22:00)
[2018-07-23] MEDS: hydrOXYzine PAMOATE 50 MG CAPSULE (FP) PO PRN (06:12)
[2018-07-23] MEDS: CYCLOBENZAPRINE HCL 10 MG TABLET (FP) PO SCH (06:12)
[2018-07-23 06:39] VITALS: BP 127/91; PULSE 78; TEMP 98.8
[2018-07-23] MEDS: LORATADINE 10 MG TABLET PO SCH (09:52)
[2018-07-23] MEDS: PRENATAL VITAMINS W/ FOLIC ACID TABLET (FP) PO SCH (09:52)
[2018-07-23] MEDS: amLODIPine BESYLATE 10 MG TABLET (FP) PO SCH (09:52)
[2018-07-23] MEDS: CITALOPRAM HYDROBROMIDE 20 MG TABLET (FP) PO SCH (09:53)
[2018-07-23] MEDS: LIDOCAINE 5% TOPICAL PATCH TP SCH (09:53)
[2018-07-23] MEDS: IBUPROFEN 400 MG TABLET (FP) PO PRN (09:54)
--- NOTE | 2018-07-23 10:52 | PN ---
S Progress Note Note: PT COMPLETED REHAB AND DISCHARGED TODAY. ALERT O X 3. NAD. PT REPORTS HE HAS PRIMARY CARE WITH PT INSTRUCTED TO F/U WITH PMD FOR MEDICAL MANAGEMENT NEEDED.
== END 2018-07-23 11:05 | disposition home or self-care (01) | DRG 772 ==
LOC: YASAS 13:11 → Y5N 13:13
PROVIDERS: ADMIT Psychiatry & Neurology Psychiatry; ATTEND Psychiatry & Neurology Psychiatry
PROC: HZ42ZZZ Group Counseling for Substance Abuse Treatment, Cognitive-Behavioral (ICD-10-PCS; principal; 2018-07-02)
DX: F10.24 Alcohol dependence with alcohol-induced mood disorder (principal); F10.282 Alcohol dependence with alcohol-induced sleep disorder; I10 Essential (primary) hypertension